=== PATIENT | female | born 1995 | race Caucasian/White ===

== ENCOUNTER → 2020-09-11 | Outpatient (CLI) | payer MEDICAID, SELFPAY ==
[2020-09-12 20:07] LABS: Chlamydia By Nucleic Acid AMP Negative (Negative)
[2020-09-13 11:03] LABS: HPV Reflexed? NOT INDICATED
[2020-09-13 13:46] LABS: Gonococcus By Nucleic Acid AMP Negative (Negative)
== END | disposition home or self-care (01) ==
LOC: LABSPEC 13:47
PROVIDERS: Visit Provider Student in an Organized Health Care Education/Training Program
DX: Z32.01 Encounter for pregnancy test, result positive (principal); Z12.4 Encounter for screening for malignant neoplasm of cervix; Z11.3 Encounter for screening for infections with a predominantly sexual mode of transmission
CPT/HCPCS: 87491; 87591; 88175; G0145

== ENCOUNTER → 2020-10-02 11:34 | Outpatient (CLI) | payer MEDICAID, SELFPAY ==
[2020-10-02 12:05] LABS: Absolute Lymphocyte Count 2.17 X10^3/uL (0.83-4.51); Absolute Neutrophil Count 6.9 X10^3/uL (2.0-7.7); Basophil# 0.04 X10^3/uL; Basophil% 0.4 % (0-1); Eosinophil# 0.16 X10^3/uL; Eosinophils% 1.6 % (0-5); Hematocrit 42.9 % (37-47); Hemoglobin 14.2 g/dL (12.0-15.0); Lymphocyte # 2.17 X10^3/ul (4.0); Lymphocyte % 21.3 % (19-41); Mean Corp Hgb Conc 33.1 g/dL (32-36); Mean Corpuscular Hgb 31.4 pg (27.0-32.0); Mean Corpuscular Volume 94.9 fL (81-99); Mean Platelet Vol. 8.8 fl (6.2-12.0); Monocyte# 0.83 X10^3/uL; Monocyte% 8.1 % (0-10); NRBC Flagged by Analyzer 0 % (0-5); Neutrophil # 6.89 X10^3/uL (2.7-7.7); Neutrophil % 67.5 % (47-70); Platelet Count 297 K/mm3 (150-450); RBC Distribution Width CV 11.7 % (11.6-14.6); RBC Distribution Width SD 40.8 fl (35.1-43.9); Red Blood Count 4.52 M/mm3 (4.2-5.4); White Blood Count 10.2 K/mm3 (4.4-11.0)
[2020-10-02 12:18] LABS: Glucose Challenge Gest 1H 50g 106 mg/dL (70-140)
[2020-10-02 13:02] LABS: HIV - WCH Non-Reactive (Nonreactive); Hepatitis B Surface Antigen Non-Reactive (Nonreactive); Rubella IgG Reactive (Nonreactive); Syphilis Antibodies Non-reactive
[2020-10-02 13:04] LABS: Hepatitis C Antibody REACTIVE (Nonreactive)
[2020-10-02 14:59] LABS: ALB/GLOB Ratio 0.9 RATIO (0.9-2.4); AST(SGOT) 53 U/L (15-37); Alanine Aminotransfer ALT/SGPT 106 U/L (13-56); Albumin, Serum 3.5 g/dL (3.2-5.0); Alkaline Phosphatase 41 U/L (45-117); Anion Gap 6 (5-15); BUN 7 mg/dL (7-18); BUN/Creat Ratio 11.8 RATIO (10-20); Chloride 105 mmol/L (98-107); Creatinine, Serum 0.59 mg/dL (0.55-1.02); EST Glomerular Filtration Rate 129 mL/min (>60); Est Glom Filt Rate - Afr Amer 156 mL/min (>60); Globulin 3.8 g/dL (2.2-4.2); Potassium 4.1 mmol/L (3.5-5.1); Protein, Total 7.3 g/dL (6.4-8.2); Sodium Level 137 mmol/L (136-145)
[2020-10-04 20:08] LABS: HCV Quant. RNA PCR 17600 IU/mL (.)
[2020-10-04 20:37] LABS: HCV log 10 4.246 (.)
== END ==
PROVIDERS: Visit Provider Student in an Organized Health Care Education/Training Program
DX: Z34.81 Encounter for supervision of other normal pregnancy, first trimester (principal); B18.2 Chronic viral hepatitis C
CPT/HCPCS: 36415; 80053; 82950; 85025; 86703; 86762; 86780; 86803; 87086; 87088; 87340; 87522

== ENCOUNTER → 2020-10-30 | Outpatient (CLI) | payer MEDICAID, SELFPAY ==
[2020-10-30 16:43] LABS: Amphetamine Urine VISTA NEGATIVE (<1000 ng/mL); Barbiturate Urine VISTA NEGATIVE (< 200 ng/mL); Benzodiazepine Urine VISTA NEGATIVE (< 200 ng/mL); Cocaine Urine VISTA NEGATIVE (< 300 ng/mL); Ecstacy Urine VISTA NEGATIVE (< 500 ng/mL); Methadone Urine VISTA NEGATIVE (< 300 ng/mL); PCP Urine VISTA NEGATIVE (< 25 ng/mL); THC Urine VISTA POSITIVE (< 50 ng/mL); Vista UDS pH Range 6
== END | disposition home or self-care (01) ==
LOC: LABSPEC 15:17
PROVIDERS: Visit Provider Student in an Organized Health Care Education/Training Program
DX: Z34.82 Encounter for supervision of other normal pregnancy, second trimester (principal)
CPT/HCPCS: 80307

== ENCOUNTER 2021-01-07 18:13 | Emergency (ER) | payer MEDICAID, SELFPAY ==
[2021-01-07 18:14] VITALS: BP 130/77; PULSE 94; RESP 16; TEMP 36.4; O2SAT 97; BMI 51.2
--- NOTE | 2021-01-07 18:55 | EKG12_ITS ---
Test Reason : DYSRHYTHMIA Blood Pressure : / mmHG Vent. Rate : 080 BPM Atrial Rate : 080 BPM P-R Int : 110 ms QRS Dur : 084 ms QT Int : 382 ms P-R-T Axes : 004 034 021 degrees QTc Int : 440 ms Sinus rhythm with short ND Otherwise normal ECG Confirmed by REUBEN GAMEZ, BRICE ([id number]), commercial production editor EDISON LUNA ([id number]) on 01/10/2021 1:24:11 PM Referred By: QUYNH Confirmed By:BRICE ALEXIS MD
[2021-01-07] MEDS: 0.9% Normal Saline 1,000 ML 999 ML IV (18:59)
[2021-01-07 19:12] LABS: Absolute Lymphocyte Count 1.74 X10^3/uL (0.83-4.51); Absolute Neutrophil Count 7.9 X10^3/uL (2.0-7.7); Basophil# 0.05 X10^3/uL; Basophil% 0.5 % (0-1); Eosinophils% 0.9 % (0-5); Hematocrit 35.8 % (37-47); Hemoglobin 11.9 g/dL (12.0-15.0); Lymphocyte # 1.74 X10^3/ul (0.83-4.51); Mean Corp Hgb Conc 33.2 g/dL (32-36); Mean Corpuscular Hgb 31.4 pg (27.0-32.0); Mean Corpuscular Volume 94.5 fL (81-99); Monocyte# 0.74 X10^3/uL; Monocyte% 6.8 % (0-10); NRBC Flagged by Analyzer 0 % (0-5); Neutrophil % 72.4 % (47-70); Platelet Count 263 K/mm3 (150-450); RBC Distribution Width CV 12.2 % (11.6-14.6); RBC Distribution Width SD 42.7 fl (35.1-43.9); Red Blood Count 3.79 M/mm3 (4.2-5.4); White Blood Count 10.9 K/mm3 (4.4-11.0)
[2021-01-07 19:32] LABS: Anion Gap 10 (5-15); BUN 7 mg/dL (7-18); BUN/Creat Ratio 13.7 RATIO (10-20); Calcium,Total 8.6 mg/dL (8.5-10.1); Chloride 106 mmol/L (98-107); Creatinine, Serum 0.51 mg/dL (0.55-1.02); EST Glomerular Filtration Rate 153 mL/min (>60); Est Glom Filt Rate - Afr Amer 186 mL/min (>60); Estimated Creatinine Clearance 125.03 ml/min; Glucose 135 mg/dL (74-106); Potassium 3.3 mmol/L (3.5-5.1); Sodium Level 137 mmol/L (136-145)
[2021-01-07 20:13] VITALS: BP 104/55; PULSE 86; RESP 16; O2SAT 99
[2021-01-07 20:26] VITALS: BP 104/55; BP 115/53; BP 123/75; PULSE 84; PULSE 85; PULSE 90
[2021-01-07 22:00] VITALS: BP 100/50; PULSE 80; RESP 16; O2SAT 99
[2021-01-07 22:36] VITALS: BP 124/57
--- NOTE | 2021-01-07 23:30 | EDS_ITS ---
HPI History of Present Illness Chief Complaint: Syncope Detail of Chief Complaint: Near syncope the patient did not pass out. Informant: patient Onset/Context/Timing Onset: Today Context: Sudden Onset Timing: Continuous Current Severity: Gone Maximum Severity: Mild Narrative Narrative: 25-year-old female past medical history of hepatitis C. She is currently 24 weeks she is due April 27. She is seeing a [facility] LEGAL SECRETARY RECEPTIONIST. States today she had episode where she felt like she was going to pass out. Did not lose consciousness. Since she had hot flashes. This is her first she is Ab0. This occurred around 5 PM while she was inside the house. Said she felt lightheaded. Had some nausea. No chest pain. No shortness of breath. No abdominal pain. No vaginal bleeding. No dysuria. No recent fevers. States the has been going well. Prior similar symptoms: Yes Recent Illness/Hospitalization: No PFSH PFSH Home Medications (w/o vit A)-Fe fum-FA [ Care] 1 tab PO DAILY 01/07/21 [History Last Taken Unknown] Allergy/AdvReac Type Severity Reaction Status Date / Time No Known Allergies Allergy Verified 01/07/21 18:14 Social History Smoking Status: Never smoker ROS ROS ED ROS Narrative Near syncope with nausea. No vomiting or diarrhea. No fever. No headache or chest pain. No abdominal pain. Review of Systems ROS Unobtainable: Denies due to encephalopathy Constitutional Constitutional ED: Denies chills or fever(s) Eyes Eyes: Denies change in vision ENT ENT ED: Denies ear pain or sore throat Cardiovascular Cardiovascular: Denies chest pain, palpitations or racing heartbeat Respiratory/Chest Respiratory/Chest: Denies cough or dyspnea Gastrointestinal Gastrointestinal: Denies abdominal pain, diarrhea, nausea or vomiting Genitourinary Genitourinary ED: Denies dysuria or hematuria Musculoskeletal Musculoskeletal: Denies myalgias Integumentary Denies rash Neurologic Neurologic: Denies headache(s) Psychiatric Psychiatric: Denies depression Endocrine Endocrinology: Denies polyuria Allergic/Immunologic Allergic/Immunologic ED: Denies urticaria EXAM Physical Exam Narrative Exam Narrative: Well-appearing 25-year-old female vital signs are stable afebrile. Pulse ox 97% on room air no signs hypoxia. Initial blood pressure 124/57. Orthostatic vital signs are negative. HEENT exam unremarkable. Neck nontender. Lungs clear to auscultation bilaterally. Heart regular rhythm no murmur. Abdomen soft nontender no peritoneal signs. Gravid uterus. Patient moving all 4 extremities. Nontender no edema. No cords. Neurologically awake alert no focal motor deficits. Const Vital Signs: 01/07/21 18:14 01/07/21 18:28 01/07/21 20:13 Temperature 97.6 F L Temperature Source Temporal Pulse Rate 94 86 Pulse Rate [Lying] Pulse Rate [Sitting] Pulse Rate [Standing] Respiratory Rate 16 16 Respiratory Effort Normal Non-Labored Respiratory Pattern Normal Blood Pressure 130/77 H 104/55 L Blood Pressure [Lying] Blood Pressure [Sitting] Blood Pressure [Standing] Blood Pressure Mean 94 71 Blood Pressure Mean [Lying] Blood Pressure Mean [Sitting] Blood Pressure Mean [Standing] Pulse Ox 97 99 Oxygen Delivery Method Room Air Room Air 01/07/21 20:26 01/07/21 22:00 01/07/21 22:36 Temperature Temperature Source Pulse Rate 80 Pulse Rate [Lying] 84 Pulse Rate [Sitting] 85 Pulse Rate [Standing] 90 Respiratory Rate 16 Respiratory Effort Respiratory Pattern Blood Pressure 100/50 L 124/57 H Blood Pressure [Lying] 123/75 H Blood Pressure [Sitting] 115/53 L Blood Pressure [Standing] 104/55 L Blood Pressure Mean 66 79 Blood Pressure Mean [Lying] 91 Blood Pressure Mean [Sitting] 73 Blood Pressure Mean [Standing] 71 Pulse Ox 99 Oxygen Delivery Method Room Air Positive well nourished and well developed General Appearance ED: well developed HEENT Reports moist mucous membranes Negative for trauma or tenderness Eyes PERRL and EOMs intact bilaterally Neck no lymphadenopathy, supple and no JVD General: Negative for tenderness Chest Wall inspection of chest normal and palpation of chest normal Resp normal respiratory effort and clear to auscultation bilaterally Cardio regular rate, regular rhythm, S1 normal heart sound, S2 normal heart sound and no murmurs GI normal to inspection, nondistended, normoactive bowel sounds, non-tender and non-distended GI Narrative: Gravid uterus. Nontender. Palpation: soft Back/Spine no CVA tenderness Extremity normal to inspection General Extremety ED: Negative for edema or tenderness General Extremity: Negative for edema Neuro oriented x3 and CN's II-XII intact bilaterally Sensorium / Orientation: alert; Negative for lethargic or stuporous Motor Exam: strength 5/5 throughout Psych mental status grossly normal Skin no rashes or lesions noted MDM MDM MDM Narrative Medical decision making narrative: 25-year-old female 24 weeks near syncopal episode. Benign exam. Screening labs being obtained. Patient treated with IV fluids. She is doing well repeat exam at 1130 and will be discharged to home. Lab Data Attestation: I reviewed the patient's lab results. Lab results narrative: CBC white count 10. Hemoglobin 10.9. Electrolytes unremarkable gap 10. Creatinine 0.5. Glucose 135. EKG was unremarkable with a sinus rhythm rate 80. Labs: Laboratory Results - last 24 hr 01/07/21 01/07/21 18:55 18:55 WBC 10.9 RBC 3.79 L Hgb 11.9 L Hct 35.8 L MCV 94.5 MCH 31.4 MCHC 33.2 RDW Std Deviation 42.7 RDW Coeff of John 12.2 Plt Count 263 MPV 9.0 Immature Gran % (Auto) 3.400 H Neut % (Auto) 72.4 H Lymph % (Auto) 16.0 L Kenton % (Auto) 6.8 Eos % (Auto) 0.9 Baso % (Auto) 0.5 Absolute Neuts (auto) 7.9 H Absolute Lymphs (auto) 1.74 Nucleated RBC % 0 Sodium 137 Potassium 3.3 L Chloride 106 Carbon Dioxide 21.0 Anion Gap 10 BUN 7 Creatinine 0.51 L Estim Creat Clear Calc 125.03 Est GFR (MDRD) Af Amer 186 Est GFR (MDRD) Non-Af 153 BUN/Creatinine Ratio 13.7 Glucose 135 H Calcium 8.6 Rhythm Strip Rhythm Strip: Sinus Rhythm Rate: 80 Ectopy: None EKG Initial EKG: Attestation: I personally reviewed and interpreted this EKG as follows: Interpretation: Sinus Rhythm and No Acute Injury Pattern Comments: Normal sinus rhythm rate of 80 with no acute signs of [place], ischemia or dysrhythmia. Prior: No Prior Discharge Plan Triage Chief Complaint: Syncope ED Provider: Madhav Reynoso Dx/Rx/DC Orders Instructions: ED Near-Fainting, Uncertain Cause Prescriptions: No Action Care 40 mg iron-1 mg Tablet 1 tab PO DAILY RF: 0 Primary Care Provider: Care Physician,No Primary Referrals: Care Physician,No Primary [Primary Care Provider] - Activity Restrictions/Additional Instructions: Your labs and EKG today were unremarkable. Follow-up with your LEGAL SECRETARY RECEPTIONIST. Plenty of fluids and rest. Return emergency department if feeling worse. Disposition Disposition: Home, Self Care
[2021-01-07 23:47] VITALS: PULSE 80; RESP 16; O2SAT 97
== END 2021-01-07 23:47 | disposition home or self-care (01) ==
PROVIDERS: Emergency Provider Emergency Medicine
DX: O26.892 Other specified pregnancy related conditions, second trimester (principal); R55 Syncope and collapse; Z3A.24 24 weeks gestation of pregnancy; Z86.19 Personal history of other infectious and parasitic diseases
CPT/HCPCS: 80048; 85025; 93005; 96360; 96361; 99284; J7030; A4216

== ENCOUNTER → 2021-01-22 13:31 | Outpatient (CLI) | payer MEDICAID, SELFPAY ==
[2021-01-07 18:14] VITALS: BMI 51.2
[2021-01-22 14:14] LABS: Hematocrit 35.7 % (37-47); Mean Corp Hgb Conc 33.6 g/dL (32-36); Mean Corpuscular Hgb 31.5 pg (27.0-32.0); Mean Corpuscular Volume 93.7 fL (81-99); Mean Platelet Vol. 9.3 fl (6.2-12.0); Platelet Count 280 K/mm3 (150-450); RBC Distribution Width CV 12.4 % (11.6-14.6); Red Blood Count 3.81 M/mm3 (4.2-5.4); White Blood Count 9.9 K/mm3 (4.4-11.0)
[2021-01-22 14:26] LABS: Amphetamine Urine VISTA NEGATIVE (<1000 ng/mL); Barbiturate Urine VISTA NEGATIVE (< 200 ng/mL); Benzodiazepine Urine VISTA NEGATIVE (< 200 ng/mL); Cocaine Urine VISTA NEGATIVE (< 300 ng/mL); Ecstacy Urine VISTA NEGATIVE (< 500 ng/mL); Methadone Urine VISTA NEGATIVE (< 300 ng/mL); PCP Urine VISTA NEGATIVE (< 25 ng/mL); THC Urine VISTA POSITIVE (< 50 ng/mL); Vista UDS pH Range 7
[2021-01-22 14:42] LABS: Glucose Challenge Gest 1H 50g 161 mg/dL (70-140)
[2021-01-25 03:07] LABS: HCV Quant. RNA PCR 589000 IU/mL (.)
== END ==
PROVIDERS: Visit Provider Obstetrics & Gynecology
DX: Z34.82 Encounter for supervision of other normal pregnancy, second trimester (principal)
CPT/HCPCS: 36415; 80307; 82950; 85027; 87522

== ENCOUNTER → 2021-01-26 09:50 | Outpatient (CLI) | payer MEDICAID, SELFPAY ==
[2021-01-07 18:14] VITALS: BMI 51.2
[2021-01-26 11:49] LABS: Glucose GTT-Gestational 1 Hr 245 mg/dL (<190)
[2021-01-26 11:50] LABS: Glucose GTT-Gestation. Fasting 93 mg/dL (<105)
[2021-01-26 12:57] LABS: Glucose GTT-Gestational 2 Hr 158 mg/dL (<165)
[2021-01-26 13:37] LABS: Glucose GTT-Gestational 3 Hr 132 L (<145)
== END ==
PROVIDERS: Referring Provider Obstetrics & Gynecology; Visit Provider Obstetrics & Gynecology
DX: O24.912 Unspecified diabetes mellitus in pregnancy, second trimester (principal); Z3A.00 Weeks of gestation of pregnancy not specified
CPT/HCPCS: 36415; 82951; 82952

== ENCOUNTER → 2021-04-05 12:10 | Outpatient (CLI) | payer MEDICAID, SELFPAY | PROVIDERS: Visit Provider Obstetrics & Gynecology | DX: Z36.85 Encounter for antenatal screening for Streptococcus B (principal) | CPT/HCPCS: 87081 ==

== ENCOUNTER 2021-04-25 05:33 | Inpatient (IN) | payer MEDICAID, SELFPAY ==
[2021-04-25] VITALS (51 sets, daily range): BP systolic 92–198; BP diastolic 41–115; PULSE 74–148; RESP 16–18; TEMP 35.9–37.1; O2SAT 80–99; BMI 50.3
[2021-04-25 05:56] LABS: Bedside Glucose 103 mg/dL (70-110)
[2021-04-25] MEDS: Lactated Ringers 1,000 ML 200 ML IV (06:15)
[2021-04-25] MEDS: Lactated Ringers 500 ML 999 ML IV ×3 (06:15→08:59)
--- NOTE | 2021-04-25 06:21 | PCM.HP.OB ---
HPI - General General Date of Admission: 04/25/21 HPI Narrative HOLA DO, is a 25 F G1 @ 39 5/7 weeks gestation who presents in labor. hx gestational diabetes. US 04/05/21 with EFW 2887 (39th%) with HC/AC 1.02. OB PROBLEM LIST: Declines all genetics testing. Admits to marijuana use, is cutting back and plans to quit Asthma - uses Albuterol inhaler prn planned, office class encouraged GDMA2 Hep C Hx of Meth/Heroin use; none for 4 years. Likely epidural; office childbirth class encouraged Obesity - limit weight gain Smokes, working on quitting Maternal Data Information PAUL Calculator Estimated Delivery Date Method Current WG Current Estimate 04/27/21 LMP (Certain) 39w 5d PFSH PFSH Medical History (Updated 04/25/21 @ 07:[address] Renetta Brock MD) Asthma Hepatitis C Obesity Home Medications (w/o vit A)-Fe fum-FA [ Care] 1 tab PO DAILY 01/07/21 [History Last Taken 04/24/21] insulin detemir U-100 [Levemir U-100 Insulin] 15 SUBCUT BREAKFAST 04/25/21 [History Last Taken 04/24/21] insulin detemir U-100 [Levemir U-100 Insulin] 20 SUBCUT DINNER 04/25/21 [History Last Taken 04/24/21] Allergy/AdvReac Type Severity Reaction Status Date / Time No Known Allergies Allergy Verified 04/25/21 05:52 Family History no significant family his no significant family history Surgical History no surgical history no surgical history Social History Smoking Status: Heavy Smoker (>10/day) History 1 Elective abortions Hx Para 0 Spontaneous abortions Hx # Term Pregnancies Ectopic pregnancies Hx # Pregnancies Multiple births # of living children NST FHR Rate Baby A Baseline: 135 Variability:: Moderate Accelerations:: 15 x 15 Decelerations:: Variable FHR Category:: Category II Uterine Activity:: 3-/10 Vital Signs Vital Signs Vital Signs: Weight Weight: 120.7 kg Body Mass Index (BMI) 50.3 Physical Exam Const alert, oriented x3 and no apparent distress HEENT normocephalic Resp normal respiratory effort, normal air movement and clear to auscultation bilaterally Cardio regular rate and regular rhythm GI normal to inspection, nondistended, normoactive bowel sounds, soft to palpation, non-tender and non-distended Inspection: gravid Narrative: 6cm/85/-2 per RN exam Labs Labs Labs: Blood Type AB POSITIVE Antibody Screen Pending Hct 41.5 % (37-47) Hgb 14.3 g/dL (12.0-15.0) Syphilis Total Ab Non-reactive Rubella IgG Antibody Reactive (Nonreactive) Hep Bs Antigen Non-Reactive (Nonreactive) Neisseria gonorrhoeae DNA (KEILA) Negative (Negative) HIV 1&2 Antibody Non-Reactive (Nonreactive) Glucose 1 Hr 50 gm 161 mg/dL (70-140) H Antepartum Flow Sheet Highlights: Apr 06 38 272 100/70 tr - 38 V 1 Apr 06 37 272 110/80 - - 37 V Mar 07 36 270 108/78 tr - 36 V 1 Mar 07 35 276 126/84 ne ne 35 V [facility] Mar 07 34 274 102/76 tr - 36 [facility] Mar 07 33 275 104/68 - - 33 Feb 04 32 271 118/72 tr ne 32 V Feb 05 30 275 104/62 ne ne 30 - Feb 05 28 274 128/78 - - 28 - Jan 05 26 277 128/80 ne 1+ 26 - CM Dec 08 22 273 126/64 tr ne CM November 07 18 266 138/70 ne ne CM Oct 08 14 264 128/84 - tr CM Sep 07 10 264 126/88 - - SHORT ANTEPARTUM NOTE(S): Apr see note Apr feeling well. Blood Sugars done. AM Mar see note Mar 21Mar chest cold/congestion, FBS hi; inc insulin Mar see note Feb 19 Feb 05 Feb 22Jan GCT/labs today Dec 28 November 29 Nov 02Sep see note LONG ANTEPARTUM NOTES: Apr 38wk, BPP /. GDMA2 Levemir 15U qam 20U qpm. OTBS wnl. IOL 04/25/21 at 39wks scheduled. Apr Will schedule induction for next week. FM, SROM, and labor reviewed. No complaints today. Wanting natural labor in tub room. LMT Induction scheduled for 04/25 at 7 pm Cytotec induction. Advised per WP no tub room with induction. Not able to shower or use tub. Can ck prior to induction regarding support person/persons. LMT Apr H&P taken to OB. tkg Apr 37 weeks, GBS collected last visit results still pending. Called lab, results GBS negative. GDM A2 currently on Levemir 15U qhs. Fasting 90's 2hr PP 110-130. Will increase insulin to Levemir 15U qam and 20U qpm. Patient does work second shift so takes her 'morning' insulin at noon and 'nighttime' insulin at midnight. Educated patient on second shift. Continue weekly BPP's. For delivery at 39 weeks, will schedule next visit. JM Mar Hola is here for visit. Feeling more uncomfortable and feels like she has some contractions. Advised this is normal at this point. Reviewed to WP if SROM or regular, progressive ctx's coming q 5 minutes and painful. FM reviewed and to call if decreased. GBS today, LARC declined. Wants to discuss Nexplanon scar she has and if that might happen again. Had Tdap. LMT Mar 36 weeks, ultrasound today AGA, vertex. GDM A2 currently on Levemir 15U qhs. Fasting 90-100 2hr PP 110-120, improved from last visit. Will increase insulin to Levemir 10U qam and 15U qpm. Patient does work second shift so takes her 'morning' insulin at noon and 'nighttime' insulin at midnight. Educated patient on second shift. Continue weekly BPP's. For delivery at 39 weeks. GBS collected today. Mar Brought blood sugar log for review . Still finding what foods are better for BS control. Feeling well with good FM. Mar 35 weeks, GDM A2 previously prescribed Levemir 15U qHS but patient only taking Levemir 8 units. Fasting 100 2hr PP 110-120. Educated on insulin, will take Levemir 15U qHS. BPP weekly until 39 weeks. Educated on 39-week induction of labor, to be scheduled. GBS next visit. JM 09 Sep Hola is being seen for PNV. Pt is 33 weeks and 6 days. Pt admits she has not started the insulin that was prescribed last week. She was trying to get sugars down to where she may not need insulin. She works second shift and eats alot of the times late. She has cut out carbs for dinner, no milk in the evenings, and no sweets at night. She also states that when she was at the pharmacy she was given syringes and would like pens if insurance covers it as she will be 5 years clean 08/2021 from meth/heroin use. AM 09 Sep Pt wants to avoid sq insulin if possible due to hx of IV drug abuse. Will give trial of po glyburide to help with FBSs. Start BPP next week. Feb Hola is here with SO for PNV following US. BS log copied to be scanned to chart. States she is feeling well with good FM. Trace of edema noted today. Urine tr/neg. LSS Feb 32 weeks, growth ultrasound AGA. GDM A1 now GDM A2 fastings 100's 2hr PP 100's. To start Levemir 15U qHS. Educated on insulin, and how to give insulin. Ordered for weekly BPP's with every 4 week growth ultrasounds until 39 weeks. Feb Hola is here for PNV. Brought BS record with here. Copied for chart. Shares that she is trying to cut back on cigarettes. Showing 1+ edema today. Having good FM. Urine neg/neg. LSS Feb 30 weeks, GDM A1 blood sugars within normal limits we will continue diet control. For growth ultrasound next visit. Consider testing after growth ultrasound next visit. JARRET Feb Hola reporting good FM. Checking blood sugars 4 x day. Feb 28wks, now GDMA1 Fasting 90 iso elevated 2hr GTT 100-120 iso elevated. Educated patient after reviewing diet on diet changes, including limiting cream and sugar in coffee and eliminating sugary drinks. We will continue diet control and reevaluate for medication at next visit. Ordered for growth ultrasound at 32 weeks. Will consider further testing at 32 weeks and beyond. JARRET Jan Hola is here for PNV. Had GCT/labs today. Urine neg/1+. Some swelling noted in hands and feet. Has been painting bedroom at home. Shares that she is having good FM. Voices no concerns today. LSS Jan Hep C Viral Load, Urine Tox Screen also sent today. kbm Jan 26 weeks, 1 hour GTT today. History of hepatitis C, for repeat hepatitis C viral load today. Class III obesity will order growth ultrasound around 32 weeks, needs ordered. JM Dec Hola is here for PNV following US. Shares that she is having a boy. Having good FM. Some slight swelling noted in hands and feet. When asked about marijuana use states that she has not used for several weeks now. Urine tr/neg. LSS Dec 22/3w visit. Anatomy US today wnl. Glucola given for next apt. Class III obesity - will need growth US. Early 1hr wnl. Hx of drug use - no longer using IV drugs and not using marijuana. HCV. F/u 4w. CM 27 November Hola is here for PNV. Has some slight swelling in bilateral feet. None noted in hands. Having questionable FM. BP slightly elevated. 138/70. Retake, lying on left side 134/68. Voices no concerns. Urine neg/neg. LSS 27 November 18/3w visit. Class III obesity- will need growth US, early 1hr wnl. Hx of drug use - now using marijuana. Allergies - okay to take anti-histamine. Also discussed related rhinitis. Reflux - managed with tums. F/u 4w with anatomy US. CM Oct Honey nut cheerios for lunch -- urine is trace sugar. Getting headaches sinus areas. Reviewed otc meds ok to take. Urine sent for tox screen. kbm Oct 14/3w. Class III obesity. Will need growth US, early 1hr wnl. Hx of drug use - now using marijuana. Tox sent today. HCV. Viral load done last visit. Will need f/u PP with GI. F/u 4w. CM 29 Mar Hoal is being seen for PNV today. Pt has mother with her for visit today. Pt is about 10 weeks and 3 days. New OB packet done today. Pt voices no complaints. AM 29 Mar 10/3w visit. Glucose/labs drawn. Declines genetic/carrier screening. Neg family hx. Obesity. Hx of drug use. F/u 4w. CM 29 Mar Hola is here w her mother for visit. Early glucose lab drawn w labs and urine to lab. EPDS score 3. paperwork completed. No genetic famly issues except marijuana use in pg. Declines any genetic testing. Nohemy KATE 16 Mar TELEHEALTH NOB VISIT, 60 MINUTE DURATION. Hola is a 25 year old with an PAUL of 04/27/2021, current GA is 8 w 4 d. She resides with FABY/KIM, Justus Friend, and she states that he is supportive and that they are both excited. This is also Justus's first baby. 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 She reports nausea most days, and states that she has recently vomited twice. She tries to eat small frequent meals and increasing her water intake with a goal of at least one gallon per 24 hours. Encouraged protein throughout the day. Reviewed other measures that may help minimize nausea, including carb rich foods when nauseous, motion sickness bracelets, Vitamin B6 50 mg twice a day, and Unisom at bedtime. She also states that having a small snack first thing in the morning has been very helpful, and she plans to continue. Office practice patterns reviewed, and she states that she has been reading through provided office ed materials. Emergencies/danger signs, how to contact the office during/after hours, reporting a suspected UTI, round ligament pain, and common OTC medications for minor ailments approved/not approved for use during reviewed. Hola plans to deliver at [facility] with a likely epidural, and she plans to breastfeed. Office and childbirth classes discussed and encouraged, Hola takes an OTC vitamin that contains DHA, and she reports that she tolerates this well. She states that she is still smoking, but has a goal to quit, encouraged to do this and discussed importance of quitting for herself and fetus/baby. She denies use of ETOH, but admits to using marijuana, again with the goal to quit entirely; ATQ. She has shared a history of Meth/Heroin use, and states that she went to rehab and has not used for 4 years. She has Hep. C. Hola also has Asthma, for which she uses an Albuterol rescue inhaler. She shares a history of depression/anxiety, and she took medication for this in the past. She states that she also learned coping skills for anxiety and depression, and that she feels that she is doing very well now. Encouraged regular physical activity, such as walking, 30 minutes, 5 x/week. Lifting restrictions for discussed. water/caloric/dietary needs discussed at length, including limiting weight gain to 11-20 lbs, limiting empty calories (white sugars/white flours/processed foods), limiting caffeine to one cup a day, and food safety. Hola was attentive and asked good questions during NOB visit, she states that she understands all information provided during same. AW 08 Mar Hola is a 24 yr old Gr 1 here w/FOB Justus Friend for a Missed Menses. Hx monthly periods. By LMP 07/21, she would be 7 wks 3 days w/PAUL 04/27/2021. Reports cramping the week she had expected her next period, none since and no vaginal bleeding. Reporting nausea, heartburn. Discussed otc meds ok to use for these. Taking a PNV and a weekly Vit D (unsure of dose). Advised of importance of hydration w/ 10-12 large glasses of water per day. Smoker, currently 1/2 PPD --quit date set for the end of the month. Strongly encouraged to quit. Advised of adverse effects of smoking to self and fetus. 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 Positive for Hepatitis C. Asthma -- has an Albuterol Inhaler and advised to use as needed. Last pap 2016. Reports no Hx abnormals. Hx Chlamydia several years ago. Pap, GC/Chlamydia obtained today. informational materials given. Reviewed otc meds ok to take. NO NSAIDS> kbm Assessment & Plan (1) Gestational diabetes: PLAN: FS 103, will continue to monitor (2) : PLAN: Admit in labor hx drug use - utox + THC GBS neg Epidural per patient request
[2021-04-25 06:26] LABS: Absolute Lymphocyte Count 2.43 X10^3/uL (0.83-4.51); Absolute Neutrophil Count 11.4 X10^3/uL (2.0-7.7); Basophil# 0.06 X10^3/uL; Basophil% 0.4 % (0-1); Eosinophil# 0.02 X10^3/uL; Eosinophils% 0.1 % (0-5); Hematocrit 41.5 % (37-47); Hemoglobin 14.3 g/dL (12.0-15.0); Lymphocyte # 2.43 X10^3/ul (0.83-4.51); Lymphocyte % 16.1 % (19-41); Mean Corp Hgb Conc 34.5 g/dL (32-36); Mean Corpuscular Hgb 31.2 pg (27.0-32.0); Mean Corpuscular Volume 90.4 fL (81-99); Mean Platelet Vol. 9.9 fl (6.2-12.0); Monocyte# 0.94 X10^3/uL; Monocyte% 6.2 % (0-10); NRBC Flagged by Analyzer 0 % (0-5); Neutrophil # 11.39 X10^3/uL (2.7-7.7); Neutrophil % 75.5 % (47-70); Platelet Count 231 K/mm3 (150-450); RBC Distribution Width CV 12.6 % (11.6-14.6); RBC Distribution Width SD 41.6 fl (35.1-43.9); Red Blood Count 4.59 M/mm3 (4.2-5.4); White Blood Count 15.1 K/mm3 (4.4-11.0)
[2021-04-25 06:44] LABS: Amphetamine Urine VISTA NEGATIVE (<1000 ng/mL); Barbiturate Urine VISTA NEGATIVE (< 200 ng/mL); Benzodiazepine Urine VISTA NEGATIVE (< 200 ng/mL); Cocaine Urine VISTA NEGATIVE (< 300 ng/mL); Ecstacy Urine VISTA NEGATIVE (< 500 ng/mL); Methadone Urine VISTA NEGATIVE (< 300 ng/mL); PCP Urine VISTA NEGATIVE (< 25 ng/mL); THC Urine VISTA POSITIVE (< 50 ng/mL); Vista UDS pH Range 6
[2021-04-25] MEDS: fentaNYL-bupivacaine (epidural) 100 ML BAG EPIDURAL (07:06)
[2021-04-25 07:46] LABS: Bedside Glucose 109 mg/dL (70-110)
--- NOTE | 2021-04-25 08:00 | PCM.PN.BLA ---
Progress Note Called to room for FHR deceleration to 60s bpm. On my arrival, pt in hands and knees. SVE 9/90/0. ISE placed and patient transferred to OR for double set up. In OR, FHR covered to 120 bpm with initial minimal variability and recovered moderate variability with Cat I FHR observed > 20 minutes. Will reposition patient and if fetus tolerates position change transfer to labor room.
[2021-04-25 08:06] LABS: Bedside Glucose 129 mg/dL (70-110)
[2021-04-25 09:01] LABS: Bedside Glucose 118 mg/dL (70-110)
[2021-04-25] MEDS: Sodium Citrate/Citric Acid 30 ML UDC PO (09:42)
[2021-04-25] MEDS: Oxytocin 30 units/NS 500 ml 30 UNITS/500 ML IV.SOLN 167 UNITS IV (11:10)
[2021-04-25] MEDS: Ketorolac 30 MG/ML Syringe IV ×3 (11:30→23:30)
[2021-04-25 11:35] LABS: Bedside Glucose 145 mg/dL (70-110)
[2021-04-25] MEDS: Acetaminophen 500 MG Tablet 1000 MG PO ×3 (11:37→23:30)
--- NOTE | 2021-04-25 14:00 | OP.PCM_ITS ---
Maternal Data Information PAUL Calculator Estimated Delivery Date Method Current WG Current Estimate 04/27/21 LMP (Certain) 39w 5d Details Operative Information Date of Procedure: 04/25/21 Pre-Operative Diagnosis: Nonreassuring Heart Tones and Increasing Stress, Gestational Diabetes Post-Operative Diagnosis: Nonreassuring Heart Tones and Increasing Stress, Gestational Diabetes Indications for : Nonreassuring Status Classification: DELIA Procedure Type: low transverse flatbed company driver #1: Madhav Rubi Type of Anesthesia: Epidural Anesthesiologist: Aj Willard Antibiotic Given: Ancef 3 grams IV x1 and Zithromax 500 mg/5 mL X1 Drain: Bui to straight drain Estimated Blood Loss: 500 cc Fluids Replaced: Crystalloid Findings Description of Procedure: Surgeon: Michelet Kendrick MD, FACOG Indication: This is a 25-year-old who presented to labor and delivery in active labor this morning. She progressed quickly to complete and pushing and was noted to have late decelerations which could not be resolved when pushing despite using oxygen. These late decelerations did not resolve and the baby was too high of a station to apply vacuum. Given this it was decided to proceed with section. care has otherwise been uneventful except for a history of drug abuse hepatitis C positive status with viral load. The patient has been counseled regarding the risk and indications of this procedure i ncluding the possibility of bleeding infection and injury to surrounding structures such as bowel bladder. All questions were answered. Procedure: Patient was taken to the operating room where after spinal anesthesia was placed, the patient was prepped and draped in usual sterile fashion and a Bui catheter was placed. The abdomen was entered through a Pfannenstiel incision and peritoneum was entered bluntly. After developing a bladder flap on the lower uterine segment a low transverse incision was made on the uterus and head was easily delivered onto the operative field the nose mouth and oropharynx were bulb suctioned. Subsequently a viable male infant was born with Apgars of 8/9. The infant was noted to cry move all extremities vigorously on the operative field. The umbilical cord was doubly clamped and ligated and handed to the nursery personnel who were present for the delivery. Placenta was delivered and noted to be 3 vessels and normal. Uterus was exteriorized and remaining placental tissue was removed. The uterus was then closed in 2 layers first with running locked 0 Vicryl suture followed by a second imbricating layer with 0 Vicryl suture. 0 Vicryl suture was then used in a horizontal mattress interrupted fashion to affect final hemostasis of the uterine incision line. Normal fallopian tubes and ovaries were visualized and the uterus was returned to the pelvis. Hemostasis was noted and rectus abdominis muscles were reapproximated in the midline with interrupted Number 0 Vicryl suture in a horizontal mattress fashion. Fascia was closed with running Number 1 PDS Strata fix suture. Subcutaneous tissue was irrigated with copious amounts of saline solution and then closed with running 3-0 Vicryl suture. Skin was closed with 4-0 monocryl suture in a running subcuticular fashion. Steri strips and a Mepilex dressing were placed across the incision. The patient tolerated the procedure well and was taken to the recovery room in satisfactory condition. Sponge, needle, and instrument counts were all reportedly correct. EBL was less than 500 cc. Ancef 3 g IV and azithromycin were given prior to the procedure. Presentation: Positive for Vertex Amniotic Membrane Rupture Type: Spontaneous Amniotic Fluid Description: Clear Placental Delivery Description: Spontaneous Placenta Disposition: [facility] Specimen(s) Sent to Pathology: None Cord Vessel Description: 3 Vessels Cord Entanglement: Around neck x 1, tight Cord Gases: ABG and VBG Infant A Gender: Male (1 minute): 8 (5 minute): 9 Complications Risks of Surgery Discussed w/Patient: Bleeding, Infection and Injury to surrounding structure(s) including bowel and bladder Complications: None
[2021-04-25] MEDS: Lactated Ringers 1,000 ML 100 ML IV ×2 (14:10→23:44)
--- NOTE | 2021-04-25 14:11 | PCM.DC ---
Discharge Instructions Diet Discharge Diet: No restrictions Activity May resume sexual activity in: 4-6 weeks Lifting Restrictions: 20 pounds Dressing / Incision Call your doctor if your incision/area has: Continuous Slow Oozing, Sudden Increased Bleeding, Increased Pain/ Swelling, Increased Redness and Foul Smelling Discharge Call your doctor if you observe: Fever of 101 or Higher, Inability to urinate, Inability to have a bowel movement and Using more than 1 pad per hour Follow Up Care Please Follow Up With: Errol Galo MD When: Call [phone] for appointment to be seen in 2 weeks. Test Results: Test results from this visit will be discussed in further detail at your follow-up appointment, if applicable. Discharge Plan Admission Admit Date/Time: 04/25/21 05:33 Primary Reason for Your Visit: Delivery Attending Provider: Michelet Kendrick Discharge Orders/Prescriptions Prescriptions: New docusate sodium 100 mg tablet 100 mg PO BID PRN (Reason: constipation) Qty: 60 RF: 1 oxycodone 5 mg Tablet 5 mg PO Q6H PRN PRN (Reason: Pain Score 6-10) 4 Days Qty: 16 RF: 0 Continued (w/o vit A)-Fe fum-FA 40 mg iron-1 mg Tablet 1 tab PO DAILY RF: 0 Discontinued Levemir U-100 Insulin 100 unit/mL solution 15 SUBCUT BREAKFAST RF: 0 Levemir U-100 Insulin 100 unit/mL solution 20 SUBCUT DINNER RF: 0 Disposition Disposition (needs filled in before D/C Order can be placed): Home, Self Care
--- NOTE | 2021-04-25 15:53 | NURSING ---
Urinary catheter removed at 1545.
[2021-04-25] MEDS: Cefazolin 1 GM/50 ML BAG IV (18:09)
[2021-04-25] MEDS: Enoxaparin 40 MG/0.4 ML Syringe SC (21:53)
[2021-04-26] VITALS (8 sets, daily range): BP systolic 91–105; BP diastolic 46–48; PULSE 74–86; RESP 12–18; TEMP 35.9–36.9; O2SAT 97–98
[2021-04-26] MEDS: Cefazolin 1 GM/50 ML BAG IV (01:28)
[2021-04-26] MEDS: 0.9% Saline Lock 10 ML Syringe IV (05:55)
[2021-04-26] MEDS: Acetaminophen 500 MG Tablet 1000 MG PO ×3 (05:55→18:32)
[2021-04-26] MEDS: Ketorolac 30 MG/ML Syringe IV (05:55)
[2021-04-26 06:57] LABS: Hematocrit 35.2 % (37-47); Hemoglobin 11.8 g/dL (12.0-15.0); Mean Corp Hgb Conc 33.5 g/dL (32-36); Mean Corpuscular Hgb 31.1 pg (27.0-32.0); Mean Corpuscular Volume 92.6 fL (81-99); Mean Platelet Vol. 9.7 fl (6.2-12.0); Platelet Count 188 K/mm3 (150-450); RBC Distribution Width CV 12.8 % (11.6-14.6); RBC Distribution Width SD 43.3 fl (35.1-43.9); White Blood Count 13.3 K/mm3 (4.4-11.0)
[2021-04-26 07:56] LABS: Bedside Glucose 104 mg/dL (70-110)
--- NOTE | 2021-04-26 08:33 | PCM.PN.OB ---
Subjective Subjective No overnight complaints. Pain well controlled. Objective Data Objective Data Vital Signs: Vital Signs Temp Pulse Resp BP Pulse Ox 98.4 F 86 16 91/48 L 98 04/26/21 04:50 04/26/21 05:30 04/26/21 05:30 04/26/21 04:50 04/26/21 05:30 Oxygen Delivery Method Room Air Weight: 266 lb 1.567 oz Body Mass Index (BMI) 50.3 Intake & Output: Intake and Output for Last 24 Hours 04/24/21 04/25/21 04/26/21 23:59 23:59 23:59 Intake Total 4553.33 / 4553.33 576.67 / 576.67 Output Total 1700 / 1700 300 / 300 Balance 2853.33 / 2853.33 276.67 / 276.67 Lab / Micro Data Result Diagrams: 04/26/21 06:48 Labs: Laboratory Results - last 24 hr 04/25/21 08:53: POC Glucose 118 H 04/25/21 11:32: POC Glucose 145 H 04/26/21 06:48: WBC 13.3 H, RBC 3.80 L, Hgb 11.8 L, Hct 35.2 L, MCV 92.6, MCH 31.1, MCHC 33.5, RDW Std Deviation 43.3, RDW Coeff of John 12.8, Plt Count 188, MPV 9.7 04/26/21 07:09: POC Glucose 104 Micro: Microbiology 04/25/21 06:05 Nasal Secretion SARS-CoV-2 Antigen (Rapid) - Final Physical Exam Const alert, oriented x3, no apparent distress, average body habitus, healthy appearing and well nourished HEENT normocephalic and moist oral mucous membranes Head and Scalp: atraumatic Face and Sinus: normal facial exam Eyes PERRL Neck full ROM Resp normal respiratory effort, no retractions and no use of accessory muscles GI GI Narrative: Soft, nontender, nondistended. Bandage clean dry and intact Extremity normal to inspection, full ROM and no clubbing, cyanosis or edema Psych mental status grossly normal, affect normal, speech normal and activity/motor behavior normal Assessment & Plan (1) Delivery by section: PLAN: Postoperative day 1 status post primary section for nonreassuring heart tones at term. Pain well controlled. Breast-feeding. GDM A2, will hold insulin. Baby in special care nursery for blood sugar control. Likely home tomorrow
--- NOTE | 2021-04-26 11:20 | CASEMGMT ---
Social Work Labor and Delivery Unit Date of Referral: 04/26/2021 Time of Referral: 829 Date of Intervention: Time of Intervention: 1782-4960 Referred by: Social Work identification. Reason for Referral: baby in SCN, first time mom, maternal marijuana use in . History obtained from: Medical record and mother of baby (MOB) Hi Lamb. *This policy writer is the social worker delinquency prevention for hospital of delivery, and for continuity of care of families admitted to the [facility], this policy writer also provides social work services to the [facility]. MOB educated to dual role. * Household composition: MOB, father of baby (FOB) Justus Friend, FOB's mother and brother (high school age). Plan to take infant to this home as well. Patient's parent/guardian status: MOB is a 25 year old single female, involved with the FOB for the last 3 years. MOB denies any abuse, control, intimidation issues in this relationship. [place] baby Bruno Lamb-Friend is the first child for both. Medical History: MOB is G1, P) to 1 after delivering Bruno. care good, starting in the first trimester. MOB with history of Hepatitis C. Delivery via caesarian section. [place] weighed 7 pounds 10 ounces at . Apgars 8 and 9 at 1 and 5 minutes of life. Educational Status: HARLEEN graduated from high school and has some college classes completed. No reported issues with reading, writing, or learning. Health Care Coverage: [facility] Medicaid. Financial Status: HARLEEN works in housekeeping and FOB is a diesel powerplant mechanic helper. Childcare/Caregiver(s): MOB will be primary caregiver, with help from FOB when home. Transportation: No issues reported. Both parents drive. Programs/Agencies Involved: Active with [facility] for medical. Plans to apply for food assistance. Has WIC. Declined referral to [facility]. No other agency involvement. No legal or children services history reported. Behavioral Health Issues: MOB reports history of depression and anxiety when in treatment for substance use a few years ago. Denies history of any SI or HI; or action or intent for such. MOB reports history of substance use of marijuana during , daily use which MOB reported to help relax MOB as well as helped with appetite and sleeping. Denies alcohol use in . Positive for smoking tobacco inside the house, but reports plan to not do this in the bedroom where baby sleeps. MOB reports remote history of heroin abuse with 08/07/2021 marking the 5 year fuad of sobriety from opiates. Reports completed a rehab program (90 days) in [place], [place] about 5 years ago. MOB had positive drug screens during on 10/30/2020, 01/22/2021, and at delivery on 04/25/2021 for marijuana. 's urine drug screen positive and meconium pending. Family Stressors: Baby in SCN. Support Systems: MOB reports good support from FOB, MOB's mom and FOB's mom. Assessment Met with MOB and introduced to social work role. MOB cooperative and pleasant. Nondefensive in conversation. MOB held good eye contact. Mood and affect congruent to content discussed. MOB reports to have necessary baby supplies and adequate support at home. MOB denies any concerns for home going. At this time MOB does not endorse belief of need for any referrals for mental health or substance use and declines referrals to supportive parenting programs such as [facility]. No voiced concerns by staff regarding parent/child interactions or bonding. Discussed with MOB use of marijuana, need to report to children services and safe plan of care for baby. MOB morse not have a medical card for marijuana use. Educated to recommendation not to provide breast milk if using marijuana, but ultimately encouraged abstinence. MOB reports plan to reduce use and expresses understanding of non-use recommendation during breast feeding. MOB reports when child gets older uncertain what will do, as MOB reports belief that marijuana use is not bad, but would not use around the child. MOB reports FOB does not use marijuana, so can be a sober person to help with baby as well as friends. Provided MOB with resource list for [facility], information on safe sleeping, shaken baby prevention, and mood and anxiety disorders. Plan MOB will discharge home when ready. Baby will discharge home with parents. Community resource information provided to MOB. Plan to call [facility] due to substance exposure in utero. KECIA Ferreira
[2021-04-26] MEDS: Senna/Docusate Sodium 1 Tablet PO (12:21)
[2021-04-26] MEDS: Ibuprofen 600 MG Tablet PO ×2 (12:21→18:31)
--- NOTE | 2021-04-26 13:10 | CASEMGMT ---
Social Work Labor and Delivery. ? Date of Intervention:?04.26.2021 Time of Intervention:?1310 ? Reason for follow-up:Communication with agency:?[facility], , Xiomara Shannon ? Summary of Family/Staff/Agency Contact:??Referral made to [facility] Jayne Shannon in the intake department. ?Referral due to substance exposed in utero. ??Reported positive drugs screens as well as brief maternal and infant histories. ?? ? Assessment:?[facility] is aware of this family now due to report. ?Aware of discharge timeframe. ?No indication to hold baby. ?As per conversation with Jayne, [facility] is uncertain whether will even screen this referral in at this time. ?? ? Plan:?No further intervention indicated. ?Refer to prior social work assessment for further details of assessment and interventions. ? ? -KECIA Howe, EXTERNAL GRINDER TENDER ? ?
[2021-04-26] MEDS: Enoxaparin 40 MG/0.4 ML Syringe SC (22:17)
[2021-04-27] MEDS: Acetaminophen 500 MG Tablet 1000 MG PO ×5 (00:21→23:54)
[2021-04-27] MEDS: Ibuprofen 600 MG Tablet PO ×5 (00:21→23:55)
[2021-04-27 03:00] VITALS: BP 117/54; PULSE 88; RESP 18; TEMP 35.8; O2SAT 96
[2021-04-27 08:10] VITALS: BP 101/47; PULSE 70; RESP 16; TEMP 36.6
--- NOTE | 2021-04-27 08:34 | PCM.DC.BLA ---
Discharge Summary Date of Admission: 04/25/21 Date of Discharge: 04/27/21 Summary: Patient arrived in labor on 04/25/2021. Patient had prolonged deceleration during dilation, resolved. Patient continued laboring, complete dilation and pushing occurred again with decelerations and decision for primary section for nonreassuring heart tones on 04/25/2021 was decided and performed. Baby with hypoglycemia, patient with GDM A2. Patient discharged on 04/27/2021 Physical Exam Const alert, oriented x3, no apparent distress, average body habitus, no limitations, healthy appearing and well nourished HEENT normocephalic Eyes PERRL Neck full ROM Resp normal respiratory effort, normal air movement, no retractions and no use of accessory muscles Extremity normal to inspection, full ROM and normal capillary refill Psych mental status grossly normal, thought process normal, cooperative, affect normal and speech normal Meaningful Use Info Meaningful Use Diagnoses (Choose all that apply): None applicable Discharge Plan Admission Admit Date/Time: 04/25/21 05:33 Primary Reason for Your Visit: Delivery Attending Provider: Michelet Kendrick Discharge Orders/Prescriptions Prescriptions: New docusate sodium 100 mg tablet 100 mg PO BID PRN (Reason: constipation) Qty: 60 RF: 1 oxycodone 5 mg Tablet 5 mg PO Q6H PRN PRN (Reason: Pain Score 6-10) 4 Days Qty: 16 RF: 0 Continued (w/o vit A)-Fe fum-FA 40 mg iron-1 mg Tablet 1 tab PO DAILY RF: 0 Discontinued Levemir U-100 Insulin 100 unit/mL solution 15 SUBCUT BREAKFAST RF: 0 Levemir U-100 Insulin 100 unit/mL solution 20 SUBCUT DINNER RF: 0 Disposition Disposition (needs filled in before D/C Order can be placed): Home, Self Care
--- NOTE | 2021-04-27 08:37 | PCM.PN.OB ---
Subjective Subjective No overnight complaints. Pain well controlled. Objective Data Objective Data Vital Signs: Vital Signs Temp Pulse Resp BP Pulse Ox 97.9 F 70 16 101/47 L 96 04/27/21 08:10 04/27/21 08:10 04/27/21 08:10 04/27/21 08:10 04/27/21 03:00 Oxygen Delivery Method Room Air Weight: 266 lb 1.567 oz Body Mass Index (BMI) 50.3 Intake & Output: Intake and Output for Last 24 Hours 04/25/21 04/26/21 04/27/21 23:59 23:59 23:59 Intake Total 4553.33 / 4553.33 576.67 / 576.67 Output Total 1700 / 1700 300 / 300 Balance 2853.33 / 2853.33 276.67 / 276.67 Lab / Micro Data Result Diagrams: 04/26/21 06:48 Micro: Microbiology 04/25/21 06:05 Nasal Secretion SARS-CoV-2 Antigen (Rapid) - Final Physical Exam Const alert, oriented x3, average body habitus, healthy appearing and well nourished HEENT normocephalic and moist oral mucous membranes Head and Scalp: atraumatic Face and Sinus: normal facial exam Neck full ROM Resp normal respiratory effort, no retractions and no use of accessory muscles Extremity normal to inspection, full ROM and no clubbing, cyanosis or edema Psych mental status grossly normal, affect normal, speech normal and activity/motor behavior normal Assessment & Plan (1) Delivery by section: PLAN: Postoperative day 2 status post primary section for nonreassuring heart tones. Breast-feeding. Baby with hypoglycemia in special care nursery. Okay to discharge home versus hotel status today
[2021-04-27] MEDS: Senna/Docusate Sodium 1 Tablet PO (10:35)
[2021-04-27 15:00] VITALS: BP 114/65; PULSE 81; RESP 16; TEMP 37
[2021-04-27 19:45] VITALS: BP 118/53; PULSE 81; RESP 18; TEMP 36.5; O2SAT 97
[2021-04-27] MEDS: Enoxaparin 40 MG/0.4 ML Syringe SC (22:57)
[2021-04-28 03:00] VITALS: BP 118/67; PULSE 75; RESP 16; TEMP 36.6; O2SAT 97
[2021-04-28] MEDS: Ibuprofen 600 MG Tablet PO ×2 (06:28→12:55)
[2021-04-28] MEDS: Acetaminophen 500 MG Tablet 1000 MG PO ×2 (06:28→12:56)
[2021-04-28 09:24] VITALS: BP 118/51; PULSE 82; RESP 16; TEMP 36.1; O2SAT 97
[2021-04-28] MEDS: Senna/Docusate Sodium 1 Tablet PO (09:28)
--- NOTE | 2021-04-28 10:23 | PCM.PN.OB ---
Subjective Subjective Patient without complaints. Minimal vaginal bleeding. Anticipate discharge tomorrow on day #1. Objective Data Objective Data Vital Signs: Vital Signs Temp Pulse Resp BP Pulse Ox 97.0 F L 82 16 118/51 L 97 04/28/21 09:24 04/28/21 09:24 04/28/21 09:24 04/28/21 09:24 04/28/21 09:24 Oxygen Delivery Method Room Air Weight: 266 lb 1.567 oz Body Mass Index (BMI) 50.3 Intake & Output: Intake and Output for Last 24 Hours 04/26/21 04/27/21 04/28/21 23:59 23:59 23:59 Intake Total 576.67 / 576.67 Output Total 300 / 300 Balance 276.67 / 276.67 Lab / Micro Data Result Diagrams: 04/26/21 06:48 Micro: Microbiology 04/25/21 06:05 Nasal Secretion SARS-CoV-2 Antigen (Rapid) - Final
[2021-04-28 13:47] VITALS: BP 102/40; PULSE 78; RESP 16; TEMP 36.7
--- NOTE | 2021-05-02 16:16 | NURSING ---
No answer. Left voicemail for follow up call
--- NOTE | 2021-06-11 16:10 | CASEMGMT ---
Social Work Labor and Delivery 's meconium is back and positive. Called [facility] today and reported new information to Jayne Shannon, in intake screening department. No other services requested or indicated. -KECIA Howe, CIGAR HEAD STRINGER
== END 2021-04-28 13:55 | disposition home or self-care (01) | DRG 540 ==
LOC: WPOUT 05:35 → WP 05:35
PROVIDERS: Obstetrics & Gynecology; Admitting Provider Obstetrics & Gynecology; Visit Provider Obstetrics & Gynecology
DX: O76 Abnormality in fetal heart rate and rhythm complicating labor and delivery (principal); O24.425 Gestational diabetes mellitus in childbirth, controlled by oral hypoglycemic drugs; Z3A.39 39 weeks gestation of pregnancy; Z37.0 Single live birth; O99.324 Drug use complicating childbirth; F12.90 Cannabis use, unspecified, uncomplicated; O99.52 Diseases of the respiratory system complicating childbirth; O99.214 Obesity complicating childbirth; E66.9 Obesity, unspecified; J45.909 Unspecified asthma, uncomplicated; O99.334 Smoking (tobacco) complicating childbirth; F17.200 Nicotine dependence, unspecified, uncomplicated; B19.20 Unspecified viral hepatitis C without hepatic coma
CPT/HCPCS: 59025; 59050; 80307; 82962; 85025; 85027; 86850; 86900; 86901; 87426; 99218; 99251; J7120; A4216; G0378; G0463; J2405

== ENCOUNTER → 2022-09-26 | Outpatient (CLI) | payer MEDICAID, SELFPAY ==
[2022-09-26 12:31] LABS: Absolute Neutrophil Count 4.6 X10^3/uL (2.0-7.7); Basophil# 0.03 X10^3/uL; Basophil% 0.4 % (0-1); Eosinophils% 2.7 % (0-5); Hematocrit 43.4 % (37-47); Hemoglobin 14.5 g/dL (12.0-15.0); Lymphocyte % 23.2 % (19-41); Mean Corp Hgb Conc 33.4 g/dL (32-36); Mean Corpuscular Hgb 31.4 pg (27.0-32.0); Mean Corpuscular Volume 93.9 fL (81-99); Mean Platelet Vol. 9.2 fl (6.2-12.0); Monocyte# 0.73 X10^3/uL; Monocyte% 9.9 % (0-10); NRBC Flagged by Analyzer 0 % (0-5); Neutrophil # 4.62 X10^3/uL (2.7-7.7); Platelet Count 297 K/mm3 (150-450); RBC Distribution Width CV 11.8 % (11.6-14.6); RBC Distribution Width SD 40.8 fl (35.1-43.9); Red Blood Count 4.62 M/mm3 (4.2-5.4); White Blood Count 7.3 K/mm3 (4.4-11.0)
[2022-09-26 13:08] LABS: Hemoglobin A1c 5.1 % (3.8-5.6)
[2022-09-26 13:24] LABS: AST(SGOT) 43 U/L (15-37); Alanine Aminotransfer ALT/SGPT 68 U/L (13-56); Albumin, Serum 3.7 g/dL (3.2-5.0); Alkaline Phosphatase 45 U/L (45-117); Anion Gap 7 (5-15); BUN 9 mg/dL (7-18); Chloride 109 mmol/L (98-107); Cholesterol 124 mg/dL (200); Creatinine, Serum 0.56 mg/dL (0.55-1.02); EST Glomerular Filtration Rate 136 mL/min (>60); Est Glom Filt Rate - Afr Amer 164 mL/min (>60); Globulin 3.6 g/dL (2.2-4.2); Glucose 96 mg/dL (74-106); High Density Lipoprotein 47 mg/dL; Potassium 4.2 mmol/L (3.5-5.1); Protein, Total 7.3 g/dL (6.4-8.2); Sodium Level 139 mmol/L (136-145); Triglycerides 58 mg/dL; Very Low Density Lipoprotein 12 mg/dL (5-40)
[2022-10-05 18:07] LABS: HCV Quant. RNA PCR 172000 IU/mL (.); Hepatitis C Genotype 3 (.)
[2022-10-06 11:18] LABS: HCV log 10 5.236 (.)
== END | disposition home or self-care (01) ==
LOC: BIMLAB 10:50
PROVIDERS: PCP Internal Medicine; Referring Provider Internal Medicine; Visit Provider Internal Medicine
DX: B19.20 Unspecified viral hepatitis C without hepatic coma (principal); Z13.6 Encounter for screening for cardiovascular disorders; Z86.32 Personal history of gestational diabetes
CPT/HCPCS: 36415; 80053; 80061; 83036; 85025; 87522; 87902

== ENCOUNTER → 2022-10-02 | Outpatient (CLI) | payer MEDICAID, SELFPAY ==
--- NOTE | 2022-10-02 10:39 | US_ITS ---
EXAM: US ABDOMEN LIMITED, RIGHT UPPER QUADRANT CLINICAL INDICATION: hepatitis c, elevated liver enzymes TECHNIQUE: Real-time ultrasound of the right upper quadrant with image documentation. This report was created using [employer] report generation technology. COMPARISON: None. FINDINGS: LIVER: Normal. There is normal echotexture. No focal hepatic lesion. No intrahepatic biliary ductal dilation. GALLBLADDER: Minimal amount of gallbladder sludge noted. No evidence of gallstone. No gallbladder wall thickening is demonstrated. No pericholecystic fluid. Negative sonographic Sosa''s sign. COMMON BILE DUCT: Unremarkable as visualized. The proximal common bile duct is within normal limits for the patient''s age. PANCREAS: Unremarkable as visualized. No focal abnormality is demonstrated in the pancreas. No pancreatic ductal dilatation. RIGHT KIDNEY: Normal. There is no hydronephrosis. No shadowing calculus. No focal lesion or perinephric collection is demonstrated. US/Liver IMPRESSION: Minimal gallbladder sludge. No discrete evidence of a gallstone. Electronically Signed: Leonides Gallagher MD at 16:48 EDT ,
== END | disposition home or self-care (01) ==
PROVIDERS: PCP Internal Medicine; Visit Provider Internal Medicine
DX: B19.20 Unspecified viral hepatitis C without hepatic coma (principal); R74.8 Abnormal levels of other serum enzymes
CPT/HCPCS: 76705

== ENCOUNTER 2022-12-26 08:00 | Outpatient (RCR) | payer MEDICAID, SELFPAY ==
--- NOTE | 2022-10-30 13:54 | HP.PTEVAL ---
Patient's Visit Information HOLA DO is a 27 year old F referred to Physical Therapy by Dr. Korin Arredondo MD with a diagnosis of URINARY INCONTINENCE. Date of Evaluation: 10/30/22 Physical Therapist: Ivet Dean PT, Cert MDT - Visit Plan Frequency: 1x/Week Duration: 8-12 WKS Plan: *CHECK AUTH*. PELVIC FLOOR STRENGTHENING. URGE INCONTINENCE EDUCATION. HEALTHY BLADDER HABIT EDUCATION. TRAINING IN COORDINATION OF PELVIC FLOOR MUSCULATURE WITH HIP AND CORE (TRANSVERSE ABDOMINUS) MUSCULATURE. POSTURE CORRECTION/STRENGTHENING. CORE STRENGTHENING. TING HIP STRENGTHENING. TRAINING IN ABDOMINAL CAVITY PRESSURE MGMT WITH ADL'S. - Subjective Work/Leisure: [employer]. 30-40 hrs a wk. INVOLVES SOME BENDING AND LIFTING. Disability: NO. Present symptoms: PATIENT REPORTS PEEING WITH LAUGHING, COUGHING AND SNEEZING. SOMETIMES THERE IS A LITTLE BIT OF LEAKING IF WAITS TOO LONG TO URINATE. INTERMITTENT PELVIC PAIN THAT GOES INTO R LEG AT TIMES WITH WALKING. WEARING ONE TO TWO PADS A DAY. Present since: SOME UI SINCE CHILDHOOD BUT SX'S INCREASED WITH / OF SON IN APR 2021. PELVIC AND R LEG PAIN STARTED WITH . R LBP SINCE BEFORE WITH SOME HISTORY OF SCIATICA WELL. Pain Scale: WORSE 8/10, LEAST 0/10. Currently: 0/10. Disturbed sleep: getting up 0-1 times a night to urinate. Previous history/Previous treatment: PATIENT DENIES ANY PRIOR UI OR BACK TREATMENT. How long can you delay the need to urinate: 20 MINUTES. Prolapse (Falling out feeling): NO. Frequency of Urination: 6-8 TIMES A DAY. Ability to stop urine flow: SOMETIMES. Ability to initiate urine stream: NO. Dyspareunia: NO. Bowel Incontinence: NO. Accidents: NO. Unexplained weight loss: NO. Imaging: NONE. PMH/Recent major surgery: Asthma. Gestational diabetes. Hepatitis C. Obesity. Urinary incontinence - Objective Sitting/Standing Posture: POOR. FORWARD HEAD. ROUNDED SHLD'S. NORMAL LORDOSIS. NO RELEVANT LATERAL SHIFT. Active Correction of posture: NE. Other Observations: INDEP GAIT AND TRANSFERS. Sensory deficit: TING LE LIGHT TOUCH SENSATION GROSSLY INTACT AND SYMMETRICAL. ROM deficit: TING LE'S WFL. Motor deficit: 5/5 TING LE'S EXCEPT HIPS 4/5. Dural Signs: NEGATIVE TING LE'S. Lumbar mvmt loss: flex - NIL. ext - MIN. R SG - NIL. L SG - NIL. Core strength: POOR. Palpation: NO LUMBAR OR HIP TENDERNESS. OTHER: PATIENT COMMUNICATES A GOOD UNDERSTANDING OF HOW TO CONTRACT HER PELVIC FLOOR BUT HAS DECREASED KNOWLEGE OF AN APPROPRIATE STRENGTHENING/TRAINING PROGRAM. FUNCTIONAL SCREEN: Incontinence Impact Questionnaire Score: 5. Urogenital Distress Inventory Score: 7 - Goals Goal 1:: DECREASE URINARY LEAKAGE EPISODES TO ONE OR LESS PER DAY Goal Time Frame: 8-12 Weeks Goal 2:: PATIENT WILL SUCCESSFULLY DELAY VOIDING FOR 60 MINUTES WHEN URGENCY OCCURS Goal Time Frame: 4-6 Weeks Goal 3:: INCREASE PELVIC FLOOR STRENGTH TO CONTROL LEAKING DURING COUGHING, SNEEZING AND LAUGHING. Goal Time Frame: 8-12 Weeks Goal 4:: DEVELOP HEALTHY FLUID INTAKE HABITS WITH FLUID INTAKE OF ? BODY WEIGHT IN OUNCES PER DAY AND 2/3 BEING WATER. Goal Time Frame: 2-4 Weeks Goal 5:: NORMALIZE VOIDING FREQUENCEY TO EVERY 3-4 HOURS. Goal Time Frame: 4-6 Weeks Goal 6:: PATIENT WILL BE INDEP WITH A HEP/HOME INSTRUCTIONS FOR CONTINUED IMPROVEMENT ONCE FORMAL PHYSICAL THERAPY CONCLUDES. Goal Time Frame: 8-12 Weeks - Anticipated Interventions Patient/Client Instruction: Educate patient on: Condition, Plan of Care, Risk Factors For the Purpose of:: To improve self management Therapeutic Exercise to Include: Strength training, Endurance training, Coordination, Body mechanics, Postural training, Neuromotor development For the Purpose of:: To improve muscle performance and motor function, To increase tolerance to activity/condition/position Manual Therapy Techniques to Include: Soft tissue mobilization Comment: AND MANUAL INTERNAL PELVIC BIOFEEDBACK NEEDED. For the Purpose of:: To improve muscle performance and motor function Thank you for the opportunity to evaluate your patient. For Medicare and Medicare HMO plans, please review the plan of care and approve it. It will need to be FAXED BACK to us at [phone] for Medicare purposes. For Medicare only, by signing this I certify the plan of care. Please let me know if there are questions or concerns regarding this plan of care. Physician Signature: Date:
--- NOTE | 2023-03-13 12:09 | HP.PT.NRP ---
Patient Information Patient Information: HOLA DO was seen in my office for initial evaluation on 10/30/22. The following Plan of Care was established for this patient: POC Established Initial Frequency: 1x/Week Initial Duration: 8-12 WKS Anticipated Interventions Patient/Client Instruction: Educate patient on: Condition, Plan of Care and Risk Factors For the Purpose of:: To improve self management Therapeutic Exercise to Include: Strength training, Endurance training, Coordination, Body mechanics, Postural training and Neuromotor development For the Purpose of:: To improve muscle performance and motor function and To increase tolerance to activity/condition/position Manual Therapy Techniques to Include: Soft tissue mobilization Comment: AND MANUAL INTERNAL PELVIC BIOFEEDBACK NEEDED. For the Purpose of:: To improve muscle performance and motor function Last Seen Last Seen: This patient was last seen in our office 12/26/22. Pertinent comments regarding their Physical therapy will appear below: This patient has not returned to Physical Therapy and is appropriate to return to MD for further follow-up as needed. At this point I will be discontinuing this patient from physical therapy. I would be happy to see this patient again in the future if found appropriate by the physician. Thank you! Ivet Dean, PT, Cert MDT
== END 2022-12-26 19:00 | disposition home or self-care (01) ==
LOC: PT 08:00
PROVIDERS: PCP Internal Medicine; Referring Provider Internal Medicine; Visit Provider Internal Medicine
DX: R32 Unspecified urinary incontinence (principal)
CPT/HCPCS: 97162; 97530

== ENCOUNTER → 2023-02-26 | Outpatient (CLI) | payer MEDICAID, SELFPAY ==
[2023-02-26 14:42] LABS: AST(SGOT) 43 U/L (15-37); Alanine Aminotransfer ALT/SGPT 96 U/L (13-56); Albumin, Serum 3.9 g/dL (3.2-5.0); Alkaline Phosphatase 48 U/L (45-117); Bilirubin, Direct 0.14 mg/dL (0.00-0.30); Globulin 3.7 g/dL (2.2-4.2); Protein, Total 7.6 g/dL (6.4-8.2)
== END | disposition home or self-care (01) ==
PROVIDERS: PCP Internal Medicine; Referring Provider Internal Medicine Gastroenterology; Visit Provider Internal Medicine Gastroenterology
DX: B19.20 Unspecified viral hepatitis C without hepatic coma (principal)
CPT/HCPCS: 36415; 80076

== ENCOUNTER → 2023-05-12 | Outpatient (CLI) | payer MEDICAID, SELFPAY ==
[2023-05-12 08:51] LABS: Absolute Lymphocyte Count 2.44 X10^3/uL (0.83-4.51); Absolute Neutrophil Count 4.6 X10^3/uL (2.0-7.7); Basophil# 0.03 X10^3/uL; Basophil% 0.4 % (0-1); Eosinophil# 0.42 X10^3/uL; Eosinophils% 5.1 % (0-5); Hematocrit 42.9 % (37-47); Hemoglobin 14.6 g/dL (12.0-15.0); Lymphocyte # 2.44 X10^3/ul (0.83-4.51); Lymphocyte % 29.8 % (19-41); Mean Corpuscular Hgb 32.4 pg (27.0-32.0); Mean Corpuscular Volume 95.1 fL (81-99); Mean Platelet Vol. 8.8 fl (6.2-12.0); Monocyte# 0.66 X10^3/uL; Monocyte% 8.1 % (0-10); NRBC Flagged by Analyzer 0 % (0-5); Neutrophil # 4.58 X10^3/uL (2.7-7.7); Neutrophil % 55.9 % (47-70); Platelet Count 283 K/mm3 (150-450); RBC Distribution Width CV 11.9 % (11.6-14.6); RBC Distribution Width SD 41.1 fl (35.1-43.9); Red Blood Count 4.51 M/mm3 (4.2-5.4); White Blood Count 8.2 K/mm3 (4.4-11.0)
[2023-05-12 09:16] LABS: AST(SGOT) 13 U/L (15-37); Alanine Aminotransfer ALT/SGPT 19 U/L (13-56); Albumin, Serum 3.4 g/dL (3.2-5.0); Alkaline Phosphatase 44 U/L (45-117); Anion Gap 4 (5-15); BUN 13 mg/dL (7-18); BUN/Creat Ratio 17.1 RATIO (10-20); Bilirubin, Direct 0.08 mg/dL (0.00-0.30); Calcium,Total 8.7 mg/dL (8.5-10.1); Chloride 105 mmol/L (98-107); Cholesterol 211 mg/dL (200); Creatinine, Serum 0.76 mg/dL (0.55-1.02); EST Glomerular Filtration Rate 95 mL/min (>60); Est Glom Filt Rate - Afr Amer 115 mL/min (>60); Globulin 3.5 g/dL (2.2-4.2); Glucose 126 mg/dL (74-106); High Density Lipoprotein 44 mg/dL; Potassium 3.7 mmol/L (3.5-5.1); Protein, Total 6.9 g/dL (6.4-8.2); Sodium Level 137 mmol/L (136-145); Triglycerides 152 mg/dL; Very Low Density Lipoprotein 30 mg/dL (5-40)
[2023-05-13 20:08] LABS: HCV Quant. RNA PCR HCV Not Detected IU/mL (.)
== END | disposition home or self-care (01) ==
LOC: LAB 08:14
PROVIDERS: PCP Internal Medicine; Referring Provider Internal Medicine Gastroenterology; Visit Provider Internal Medicine Gastroenterology
DX: B19.20 Unspecified viral hepatitis C without hepatic coma (principal)
CPT/HCPCS: 36415; 80053; 80061; 82248; 85025; 85610; 87522

== ENCOUNTER → 2024-08-03 | Outpatient (CLI) | payer MEDICAID, SELFPAY ==
[2024-08-03 17:13] LABS: Absolute Lymphocyte Count 2.44 X10^3/uL (0.83-4.51); Absolute Neutrophil Count 4.5 X10^3/uL (2.0-7.7); Basophil# 0.05 X10^3/uL; Basophil% 0.6 % (0-1); Eosinophil# 0.42 X10^3/uL; Eosinophils% 5.1 % (0-5); Hematocrit 42.1 % (37-47); Hemoglobin 14.1 g/dL (12.0-15.0); Lymphocyte # 2.44 X10^3/ul (0.83-4.51); Lymphocyte % 29.8 % (19-41); Mean Corp Hgb Conc 33.5 g/dL (32-36); Mean Corpuscular Hgb 30.8 pg (27.0-32.0); Mean Corpuscular Volume 91.9 fL (81-99); Mean Platelet Vol. 8.7 fl (6.2-12.0); Monocyte# 0.73 X10^3/uL; Monocyte% 8.9 % (0-10); NRBC Flagged by Analyzer 0 % (0-5); Neutrophil # 4.52 X10^3/uL (2.7-7.7); Neutrophil % 55.2 % (47-70); Platelet Count 295 K/mm3 (150-450); RBC Distribution Width CV 11.9 % (11.6-14.6); RBC Distribution Width SD 39.9 fl (35.1-43.9); Red Blood Count 4.58 M/mm3 (4.2-5.4); White Blood Count 8.2 K/mm3 (4.4-11.0)
[2024-08-03 19:07] LABS: AST(SGOT) 15 U/L (15-37); Alanine Aminotransfer ALT/SGPT 24 U/L (13-56); Albumin, Serum 3.7 g/dL (3.2-5.0); Alkaline Phosphatase 42 U/L (45-117); Anion Gap 6 (5-15); BUN 8 mg/dL (7-18); BUN/Creat Ratio 12.7 RATIO (10-20); Calcium,Total 9.1 mg/dL (8.5-10.1); Chloride 107 mmol/L (98-107); Creatinine, Serum 0.63 mg/dL (0.55-1.02); EST Glomerular Filtration Rate 118 mL/min (>60); Est Glom Filt Rate - Afr Amer 142 mL/min (>60); Globulin 3.8 g/dL (2.2-4.2); Glucose 86 mg/dL (74-106); Potassium 3.9 mmol/L (3.5-5.1); Protein, Total 7.5 g/dL (6.4-8.2); Sodium Level 138 mmol/L (136-145)
[2024-08-03 21:12] LABS: Hemoglobin A1c 5.2 % (3.8-5.6)
== END | disposition home or self-care (01) ==
PROVIDERS: PCP Internal Medicine; Visit Provider Nurse Practitioner Family
DX: E66.9 Obesity, unspecified (principal)
CPT/HCPCS: 36415; 80053; 83036; 84443; 85025

== ENCOUNTER → 2024-08-17 | Outpatient (CLI) | payer MEDICAID, SELFPAY ==
[2024-08-21 14:01] LABS: HPV Reflexed? NOT INDICATED
== END | disposition home or self-care (01) ==
LOC: LABSPEC 16:07
PROVIDERS: PCP Nurse Practitioner Family; Visit Provider Nurse Practitioner Family
DX: Z12.4 Encounter for screening for malignant neoplasm of cervix (principal)
CPT/HCPCS: 88175; G0145